=== PATIENT | female | born 1985 | race Caucasian/White ===

== ENCOUNTER → 2024-03-03 | Outpatient (CLI) | payer BC, SELFPAY ==
[2024-03-03 09:13] LABS: Collection Type, Urine Clean Catch
[2024-03-03 09:29] LABS: Basophils % (Auto) 1 % (0-2.5); Eosinophils # (Auto) 0.1 Thou/mm3 (0.0-0.5); Eosinophils % (Auto) 2 % (0-10); Hematocrit 38.6 % (36.0-46.0); Hemoglobin 13.1 g/dL (12.0-16.0); Immature Granulocytes % (Auto) 0 % (0-0); Immature Granulocytes Auto 0.01 Thou/mm3 (0.00-0.00); Lymphocytes # (Auto) 1.5 Thou/mm3 (1.0-4.8); Lymphocytes % (Auto) 34 % (10-50); Mean Corpuscular HGB Conc 33.9 g/dl (31.0-37.0); Mean Corpuscular Hemoglobin 30.7 pg (25.0-35.0); Mean Corpuscular Volume 90 fL (80-100); Monocytes # (Auto) 0.4 Thou/mm3 (0.0-0.8); Monocytes % (Auto) 8 % (0-12); Neutrophils # (Auto) 2.4 Thou/mm3 (1.8-7.7); Neutrophils % (Auto) 55 % (37-80); Nucleated Red Blood Cell % 0 /100 WBC (0); Platelet Count 253 Thou/mm3 (140-440); RDW Standard Deviation 39.8 fL (36.4-46.3); Red Blood Count 4.27 Miln/mm3 (4.00-5.20); White Blood Count 4.3 Thou/mm3 (3.6-11.0)
[2024-03-03 09:36] LABS: Bacteria,Urine 2+; Bilirubin,Urine Negative (Negative); Blood,Urine Negative (Negative); Clarity,Urine Clear (Clear/Hazy); Color,Urine Lt-Yellow (Lt Yel-Yel); Glucose, Urine Negative (Negative); Ketones,Urine Negative (Negative); Leukocyte Esterase,Urine Negative (Negative); Nitrite,Urine Negative (Negative); PH,Urine 5.5 (5.0-7.0); Protein,Urine Negative (Neg - Trace); RBC,Urine 2 /hpf (0-3); Specific Gravity,Urine 1.029 (1.001-1.035); Squamous Epithelial Cell,Urine 2 /hpf (0-5); Urobilinogen,Urine Negative mg/dL (0.0-1.0); WBC,Urine 1 /hpf (0-5)
[2024-03-03 09:42] LABS: Culture Indicated,Urine Yes
[2024-03-03 10:51] LABS: Alanine Aminotransferase 9 U/L (10-49); Albumin, Serum 4.4 gm/dL (3.5-5.0); Albumin/Globulin Ratio 2.3 (1.2-2.2); Alkaline Phosphatase 53 U/L (46-116); Anion Gap 5 (7-16); Aspartate Amino Transferase 21 U/L (0-34); Calcium 9.6 mg/dL (8.3-10.6); Calcium (Corrected) 9.6 mg/dL (8.5-10.1); Carbon Dioxide 28.1 mMol/L (20.0-31.0); Chloride 107 mMol/L (98-107); Creatinine (Component) 0.8 mg/dL (0.6-1.3); Globulin 1.9 gm/dL (2.3-3.5); Glucose 90 mg/dL (74-106); Sodium 140 mMol/L (136-145); Thyroid Stimulating Hormone 2.17 uIU/mL (0.55-4.78); Total Protein 6.3 gm/dL (5.7-8.2); eGFR > 60 See Note
[2024-03-03 15:03] LABS: BUN/Creatinine Ratio 19 Ratio (12-20); Bilirubin,Total 0.5 mg/dL (0.3-1.2); Blood Urea Nitrogen 15 mg/dL (9-23); Cardiac Risk Estimate 2.5 RATIO (3.7-5.6); Cholesterol 172 mg/dL (132-200); HDL Cholesterol 69 mg/dL (40-60); LDL Cholesterol,Calculated 93 mg/dL (0-130); Osmolality,Calculated 280 (275-295); Triglycerides 48 mg/dL (30-150)
[2024-03-03 15:36] LABS: T4 (Thyroxine) 8.5 mcg/dL (4.5-10.9)
== END | disposition home or self-care (01) ==
PROVIDERS: PCP Nurse Practitioner Family; Referring Provider Nurse Practitioner Family; Visit Provider Nurse Practitioner Family
DX: Z00.00 Encounter for general adult medical examination without abnormal findings (principal)
CPT/HCPCS: 36415; 80053; 80061; 81001; 84436; 84443; 85025; 87086

== ENCOUNTER 2024-09-05 07:55 | Day surgery (SDC) | payer BC, SELFPAY ==
[2024-09-01 07:42] VITALS: BMI 19.3
--- NOTE | 2024-09-01 07:55 | EKG_ITS ---
[facility] Test Date: 2024-09-01 Pat Name: YOLETTE CHOE Department: Room: - Gender: Female Forensic Examiner: KALINA : 1985 Requested By: Ravinder Horner Order Number: [id number] Reading MD: Ravinder Horner Measurements Intervals [place] Rate: 54 P: 37 TN: 131 QRS: 73 QRSD: 97 T: 58 QT: 408 QTc: 389 Interpretive Statements SINUS BRADYCARDIA WITH SINUS ARRHYTHMIA No previous ECG available for comparison /store/S0/[id number]
--- NOTE | 2024-09-01 07:59 | ESHP_ITS ---
RE: YOLETTE CHOE : 1985 DATE OF ADMISSION: 09/05/2024 HISTORY OF PRESENT ILLNESS: This is a 39-year-old with abnormal uterine bleeding who presents for endometrial ablation. ALLERGIES: NONE. MEDICATIONS: 1. Lorazepam 0.5 mg 1 p.o. daily p.r.n. anxiety. 2. Metoprolol 25 mg 1 p.o. daily. PAST MEDICAL HISTORY: Mitral valve prolapse, anxiety, seasonal allergies. SOCIAL HISTORY: She denies any alcohol, drug use, or smoking. FAMILY HISTORY: Skin cancer, depression, anxiety, diabetes, hypertension. REVIEW OF SYSTEMS: She denies any chest pain, palpitations, cough, fever, shortness of breath, or lower extremity pain. PHYSICAL EXAMINATION: VITAL SIGNS: Blood pressure is 121/72, heart rate 88, respirations 18, temperature 98.6. HEENT: Oropharynx and sclerae are clear. LUNGS: Clear to auscultation bilaterally. HEART: Regular rate and rhythm. ABDOMEN: Nontender. PELVIC: Deferred. EXTREMITIES: Nontender. SKIN: No gross rashes or lesion. NEUROLOGIC: No focal deficit. ASSESSMENT: Abnormal uterine bleeding. PLAN: Hysteroscopy, fracture dilatation and curettage, and NovaSure endometrial ablation. Informed consent was obtained. The patient was made aware of the risks, complications, alternatives, and benefits of the proposed procedure and she agrees. She is aware of the risk of injury to bowel or bladder, adjacent organs, pulmonary embolism, deep vein thrombosis, pelvic infection, reoperation or prior injury to internal organs, anesthesia complications, the possibility that a laparotomy needs to be performed to repair organs or control bleeding, and the possibility that the procedure is not able to be completed due to severe adhesions or technical difficulties. She verbalized understanding and agrees to proceed with the procedure with an understanding of the risks and complications. DT: 07:45:41 TT: 07:57:00 Ref: [id number] - TID: [id number]
[2024-09-01 08:40] LABS: Basophils % (Auto) 0 % (0-2.5); Eosinophils # (Auto) 0.1 Thou/mm3 (0.0-0.5); Eosinophils % (Auto) 2 % (0-10); Hematocrit 39.1 % (36.0-46.0); Hemoglobin 13.6 g/dL (12.0-16.0); Immature Granulocytes % (Auto) 0 % (0-0); Immature Granulocytes Auto 0.01 Thou/mm3 (0.00-0.00); Lymphocytes # (Auto) 1.9 Thou/mm3 (1.0-4.8); Lymphocytes % (Auto) 33 % (10-50); Mean Corpuscular HGB Conc 34.8 g/dl (31.0-37.0); Mean Corpuscular Hemoglobin 30.8 pg (25.0-35.0); Mean Corpuscular Volume 89 fL (80-100); Monocytes # (Auto) 0.5 Thou/mm3 (0.0-0.8); Monocytes % (Auto) 8 % (0-12); Neutrophils # (Auto) 3.2 Thou/mm3 (1.8-7.7); Neutrophils % (Auto) 57 % (37-80); Nucleated Red Blood Cell % 0 /100 WBC (0); Platelet Count 273 Thou/mm3 (140-440); RDW Standard Deviation 39.9 fL (36.4-46.3); Red Blood Count 4.41 Miln/mm3 (4.00-5.20); White Blood Count 5.7 Thou/mm3 (3.6-11.0)
[2024-09-01 09:09] LABS: Alanine Aminotransferase 8 U/L (10-49); Albumin, Serum 4.5 gm/dL (3.5-5.0); Albumin/Globulin Ratio 1.9 (1.2-2.2); Alkaline Phosphatase 48 U/L (46-116); Anion Gap 9 (7-16); Aspartate Amino Transferase 18 U/L (0-34); BUN/Creatinine Ratio 18 Ratio (12-20); Beta HCG,Quantitative 1 mIU/mL (<5.0); Bilirubin,Total 0.6 mg/dL (0.3-1.2); Blood Urea Nitrogen 14 mg/dL (9-23); Carbon Dioxide 29.2 mMol/L (20.0-31.0); Chloride 103 mMol/L (98-107); Creatinine (Component) 0.8 mg/dL (0.6-1.3); Estimated Creatinine Clearance 82.8 mL/min (>60); Globulin 2.4 gm/dL (2.3-3.5); Glucose 94 mg/dL (74-106); Osmolality,Calculated 281 (275-295); Potassium 3.8 mMol/L (3.4-5.1); Sodium 141 mMol/L (136-145); Total Protein 6.9 gm/dL (5.7-8.2); eGFR > 60 See Note
[2024-09-01 10:04] LABS: Partial Thromboplastin Time 28.6 Seconds (22.0-36.0); Prothrombin Time 10.9 Seconds (9.0-12.2)
[2024-09-05] VITALS (8 sets, daily range): BP systolic 95–110; BP diastolic 60–77; PULSE 46–69; RESP 12–17; TEMP 36.3–36.4; O2SAT 100; BMI 19.3
--- NOTE | 2024-09-05 10:05 | SUR.PHASEI ---
pt received from OR in recovery bay 8. pt obtunded, breathing unlabored on 6l oxymask, oral airway in place. v/s stable. pt dressing peripad cdi. report received from Malgorzata SMITH and Zhanna DUKES.
--- NOTE | 2024-09-05 10:07 | PD.GYNPROC ---
Operative Note - EXPORT MANAGER Procedure Date of procedure: 09/05/24 Procedure Performed: Hysteroscopy MyoSure removal of endometrial polyps Fractional dilatation curettage NovaSure endometrial ablation Indication: Abnormal uterine bleeding Pre-Op diagnosis: Abnormal uterine bleeding due to anovulatory cycles Post-Op diagnosis: Abnormal uterine bleeding due to anovulatory cycles Abnormal uterine bleeding due to endometrial polyps Anesthesia type: General Procedure description: After proper informed consent was obtained and the patient made aware of the risk complications alternatives and benefits of the proposed procedure she was taken the operating room where she underwent induction of general anesthesia. She was placed in the dorsolithotomy position. she was prepped and draped in you sterile fashion. a timeout was performed. A bivalve speculum was placed in the vagina, a single-tooth tenaculum was used to grasp the anterior lip of the cervix. The uterus was sounded to 9.5 cm. The cervical length measured 3.0 cm the cervix was dilated to accommodate the 5.5 mm Omni hysteroscope. The hysteroscope was then utilized to visualize the endocervix and uterine cavity. Using the MyoSure reach 2 polyps were removed from the posterior lower uterine segment each measuring approximately 3 x 5 mm. The endocervix was curetted with a Kevorkian curette. The uterine cavity was curetted with a 5.0 mm curette. Specimen sent to pathology. The NovaSure catheter was plugged and the controller went through its purge cycle the array was appropriately seated in the uterine cavity with the width measuring 3.5 cm the ablation was performed for a total of 56 seconds with a power setting of 125 W. The NovaSure catheter was removed from the uterine cavity. The array was deployed and found to be complete and intact. There was no bleeding of the cervix at the end of the procedure. She was reversed from general anesthesia after all instruments removed from the vagina she was reversed in the supine position and transferred to the recovery in stable condition she tolerated procedure well counts were correct Estimated blood loss (ml): 5 Findings: Uterus sounded to 9.5 cm. Cervical length 3.0 cm. Uterine cavity length 6.5 cm. Uterine cavity width 3.5 cm. Power setting on or 25 W. Duration of ablation 56 seconds. Two endometrial polyps in the posterior lower uterine segment measuring 3.0 x 5.0 mm. Fluids observed hysteroscopically 125 cc Complications: none Surgical staff Dr. Horner anesthesia General Endotracheal intubation Operation Date: 09/05/24 10:00 <No data on this case meets the specified criteria> Diagnosis Discharge Diagnosis (1) Abnormal uterine bleeding due to endometrial polyp: Status: Acute (2) Endometrial polyp: Status: Acute (3) Status post endometrial ablation: Status: Acute Problem List Completed Was Problem List Reviewed/Reconciled?: Yes
--- NOTE | 2024-09-05 10:44 | SUR.PHASEII ---
pt able to tolerate oral fluids without difficulty swallowing or nausea/vomiting.
--- NOTE | 2024-09-05 11:30 | SUR.PHASEII ---
pt awake and alert, breathing unlabored on room air. v/s stable. pt dressing peripad cdi. pt able to ambulate to wheelchair with steady gait. d/c instructions given with Lewis in room, all questions answered. pt d/c via wheelchair with all belongings.
== END 2024-09-05 11:30 | disposition home or self-care (01) ==
PROVIDERS: PCP Nurse Practitioner Family; Referring Provider Specialist; Visit Provider Specialist
PROC: 0U5B8ZZ Destruction of Endometrium, Via Natural or Artificial Opening Endoscopic (ICD-10-PCS; CPT 58563; principal; 2024-09-05 09:45)
DX: N84.0 Polyp of corpus uteri (principal); F41.9 Anxiety disorder, unspecified; I34.1 Nonrheumatic mitral (valve) prolapse; N97.0 Female infertility associated with anovulation; Z83.3 Family history of diabetes mellitus; Z82.49 Family history of ischemic heart disease and other diseases of the circulatory system
CPT/HCPCS: 58563; 36415; 80053; 84702; 85025; 85610; 85730; 86850; 86900; 86901; 93005; A4217; A4649; J0690; J1100; J1885; J2250; J2405; J2704; J3010; J3490; J1596